=== PATIENT | male | born 1970 | race Caucasian/White ===

== ENCOUNTER 2023-07-31 05:57 | Day surgery (SDC) | payer BC ==
[2023-07-31] MEDS ORDERED: fentaNYL 100 MCG/2 ML SDV ONE (06:14)
[2023-07-31] MEDS ORDERED: Midazolam 1 MG/ML 2 ML SDV ONE (06:14)
[2023-07-31] MEDS: Dextrose 5%-0.45% NaCl 1,000 ML IV SCH (06:15)
[2023-07-31] MEDS: fentaNYL 100 MCG/2 ML SDV IV ONE ×2 (06:28→06:29)
[2023-07-31] MEDS: Midazolam 1 MG/ML 2 ML SDV IV ONE ×2 (06:29→06:30)
== END 2023-07-31 07:56 | disposition home or self-care (01) ==
LOC: DL.ENDO 05:57
PROVIDERS: ATTEND Internal Medicine Gastroenterology
DX: K31.819 Angiodysplasia of stomach and duodenum without bleeding (principal); K21.9 Gastro-esophageal reflux disease without esophagitis; E66.09 Other obesity due to excess calories; Z68.34 Body mass index [BMI] 34.0-34.9, adult; F17.210 Nicotine dependence, cigarettes, uncomplicated
CPT/HCPCS: 43239; 87077; J2250; J3010; J7042

== ENCOUNTER 2023-08-03 07:17 | Day surgery (SDC) | payer BC ==
[~2023-08-03 07:17] MED LIST: Midazolam 1 MG/ML 2 ML SDV ONE; fentaNYL 100 MCG/2 ML SDV ONE
[2023-08-03] MEDS ORDERED: fentaNYL 100 MCG/2 ML SDV IV ONE (07:18)
[2023-08-03] MEDS ORDERED: Midazolam 1 MG/ML 2 ML SDV IV ONE (07:18)
[2023-08-03] MEDS: Dextrose 5%-0.45% NaCl 1,000 ML IV SCH (07:45)
[2023-08-03] MEDS: fentaNYL 100 MCG/2 ML SDV IV ONE ×4 (08:09→08:20)
[2023-08-03] MEDS: Midazolam 1 MG/ML 2 ML SDV IV ONE ×6 (08:10→08:18)
== END 2023-08-03 09:36 | disposition home or self-care (01) ==
LOC: DL.ENDO 07:17
PROVIDERS: ATTEND Internal Medicine Gastroenterology
DX: K62.1 Rectal polyp (principal); K64.8 Other hemorrhoids; K21.9 Gastro-esophageal reflux disease without esophagitis; R13.10 Dysphagia, unspecified; E66.09 Other obesity due to excess calories; Z68.34 Body mass index [BMI] 34.0-34.9, adult; F17.210 Nicotine dependence, cigarettes, uncomplicated
CPT/HCPCS: J2250; J3010; J7042

== ENCOUNTER 2023-10-17 05:55 | Day surgery (SDC) | payer BC ==
[2023-10-17] MEDS ORDERED: Midazolam 1 MG/ML 2 ML SDV IV ONE (05:56)
[2023-10-17] MEDS ORDERED: fentaNYL 100 MCG/2 ML SDV IV ONE (05:56)
[2023-10-17] MEDS: Dextrose 5%-0.45% NaCl 1,000 ML IV SCH (06:14)
[2023-10-17] MEDS ORDERED: fentaNYL 100 MCG/2 ML SDV ONE (06:32)
[2023-10-17] MEDS ORDERED: Midazolam 1 MG/ML 2 ML SDV ONE (06:32)
[2023-10-17] MEDS: fentaNYL 100 MCG/2 ML SDV IV ONE ×2 (07:03→07:04)
[2023-10-17] MEDS: Midazolam 1 MG/ML 2 ML SDV IV ONE ×2 (07:04→07:05)
== END 2023-10-17 08:18 | disposition home or self-care (01) ==
LOC: DL.ENDO 05:55
PROVIDERS: ATTEND Internal Medicine Gastroenterology
DX: K21.9 Gastro-esophageal reflux disease without esophagitis (principal)
CPT/HCPCS: J2250; J3010; J7799